=== PATIENT | female | born 1955 | race Caucasian/White ===

== ENCOUNTER 2017-05-12 11:51 | Emergency (ER) | payer MEDICARE, MEDICAID ==
[2017-05-12 12:15] VITALS: BP 125/66
[2017-05-12] MEDS ORDERED: Ketorolac INJ* 60 MG/2 ML VIAL IM ONE (12:57)
[2017-05-12] MEDS ORDERED: Ketorolac INJ* 60 MG/2 ML VIAL ONE (13:05)
--- NOTE | 2017-05-12 13:39 | RAD ---
HISTORY: Weakness, sciatica, low back pain COMPARISONS: None relevant TECHNIQUE: Multiple contiguous axial CT scans were obtained of the lumbar spine without intravenous contrast, with coronal and sagittal multiplanar reformations. FINDINGS: SPINAL CANAL: Evaluation of the central canal is limited on CT technique; however, there is no obvious canalicular mass or epidural hemorrhage. ALIGNMENT: The alignment is normal. VERTEBRAL BODIES: The vertebral bodies are preserved in height. The bones are normal in attenuation. JOINTS: There is facet osteoarthritic change along the lower lumbar spine MUSCULATURE: Unremarkable INTERVERTEBRAL DISCS: There is diffuse loss of intervertebral disc height throughout the spine. AXIAL IMAGES: T12-L1: There is no osseous neural foraminal narrowing or central canal stenosis. L1-L2: There is no osseous neural foraminal narrowing or central canal stenosis. L2-L3: There is no osseous neural foraminal narrowing or central canal stenosis. L3-L4: There is mild disc bulge. There is bilateral facet hypertrophy. There is mild bilateral neuroforaminal narrowing. There is mild narrowing of the central canal. L4-L5: There is bilateral facet hypertrophy. There is mild bilateral neuroforaminal narrowing. There is no surrounding central canal stenosis. L5-S1: There is large left marginal osteophyte extending to the left lateral recess. There is moderate left neural foraminal area. There is no significant central canal stenosis. SOFT TISSUES: There is atherosclerosis of the abdominal aorta OTHER: None IMPRESSION: 1. DEGENERATIVE DISC DISEASE AND OSTEOARTHRITIS, MOST PRONOUNCED AT L3-L4, L4-L5, AND L5-S1. 2. THERE IS MULTILEVEL NEURAL FORAMINAL NARROWING DESCRIBED ABOVE. THERE IS MILD NARROWING OF THE CENTRAL CANAL AT L3-L4
--- NOTE | 2017-05-12 13:42 | ED ---
Back Pain - HPI Summary HPI Summary: Patient presents to the ED with bilateral lower back pain with radiation into the bilateral legs with weakness. Denies numbness or tingling. Denies B/B dysfunction. Previous injury at 13 yo after falling off a horse and states has had problems since that time. However this has always been intermittent. She has taken muscle relaxers without relief. She denies trauma and states the pain came upon gradually, is constant and worse with positioning and better with nothing. Pain is 5/10 at rest and 9/10 with movement. She has been feeling weak and states she must push on her legs with her hands to stand since she does not have the strength. Otherwise healthy. Last CT scan "many years ago." Thorough physical exam was performed, focusing on thoracic and lumbar special tests and ROM. Due to patient pain around injury, physical exam was limited. Limited ROM. Flip Test positive. Straight leg raise positive. Kernig test positive. Negative Babinksi. Hip flexion and extension, knee extension, dorsiflexion, great toe extension and plantar flexion intact. Rotating at hips limited d/t pain. Nerve roots L4-S2 reflexes intact. L1-S2 nerve root sensory intact. No saddle anesthesia. Gait normal. - History of Current Complaint Chief Complaint: EDBackInjuryPain Stated Complaint: LOWER BACK PAIN Time Seen by Provider: 05/12/17 12:09 Hx Obtained From: Patient Onset/Duration: Sudden Onset Onset/Duration: Started Weeks Ago Timing: Constant Pain Intensity: 9 Pain Scale Used: 0-10 Numeric Character: Aching, Spasmodic Aggravating Symptom(s): Movement Alleviating Symptom(s): Rest Associated Signs And Symptoms: Positive: Weakness. Negative: Numbness, Tingling , Flank Pain, Bladder Incontinence, Bowel Incontinence, Weight Loss, Pain with Weight Bearing - Allergies/Home Medications Allergies/Adverse Reactions: Allergies Allergy/AdvReac Type Severity Reaction Status Date / Time Penicillins Allergy Severe high fever Verified 05/28/16 12:34 Methylprednisolone Allergy Intermediate joint Verified 05/28/16 12:34 pain, "legs collapsed" Cefazolin Allergy Mild GI Upset Verified 05/28/16 12:34 CI Pigment Blue 63 Allergy Mild feels weird Verified 05/28/16 12:34 [From Cymbalta] Ciprofloxacin [From Cipro] Allergy Mild GI Upset Verified 05/28/16 12:34 Duloxetine [From Cymbalta] Allergy Mild feels weird Verified 05/28/16 12:34 Ibuprofen Allergy Mild GI Upset Verified 05/28/16 12:34 Tramadol Allergy Mild feels weird Verified 05/28/16 12:34 Codeine Allergy Vomiting Verified 05/28/16 12:34 Erythromycin Allergy delusional, Verified 05/28/16 12:34 high fever Quetiapine Allergy Unknown Verified 05/28/16 12:34 Reaction Details klonopin Allergy Altered Uncoded 05/28/16 12:34 Mental Status steroids Allergy Pain Uncoded 05/28/16 12:34 PMH/Surg Hx/FS Hx/Imm Hx Previously Healthy: Yes Endocrine/Hematology History: Denies: Hx Diabetes Cardiovascular History: Reports: Hx Hypercholesterolemia Denies: Hx Angina, Hx Coronary Artery Disease, Hx Hypertension, Hx Myocardial Infarction, Hx Pacemaker/ICD, Hx Valvular Heart Disease Respiratory History: Reports: Hx Asthma, Hx Chronic Obstructive Pulmonary Disease (COPD) History: Denies: Hx Renal Disease Musculoskeletal History: Reports: Hx Arthritis, Hx Osteoporosis Sensory History: Reports: Hx Cataracts, Hx Contacts or Glasses Denies: Hx Hearing Aid Opthamlomology History: Reports: Hx Cataracts, Hx Contacts or Glasses Psychiatric History: Reports: Hx Anxiety, Hx Depression, Hx Bipolar Disorder Denies: Hx Panic Disorder - Cancer History Hx Chemotherapy: No Hx Radiation Therapy: No - Surgical History Surgery Procedure, Year, and Place: tonsillectomy-BONE SPUR LEFT BIG TOE-NOSE SURGERY 09/03/15. left knee. left foot. left hand. cataracts-both eyes - Immunization History Hx Pertussis Vaccination: No Immunizations Up to Date: Unable to Obtain/Confirm Infectious Disease History: No Infectious Disease History: Denies: History Other Infectious Disease, Traveled Outside the [place] in Last 30 Days - Family History Known Family History: Positive: Hypertension - Social History Occupation: Employed Full-time Lives: With Family Alcohol Use: Occasionally Alcohol Amount: Monthly Hx Substance Use: No Substance Use Type: Reports: None Hx Tobacco Use: Yes Smoking Status (MU): Heavy Every Day Tobacco Smoker Type: Cigarettes Amount Used/How Often: 1 ppd Have You Smoked in the Last Year: Yes Review of Systems Constitutional: Negative Negative: Fever, Chills, Fatigue Cardiovascular: Negative Negative: Chest Pain Respiratory: Negative Negative: Shortness Of Breath, Cough Negative: Abdominal Pain, Vomiting, Diarrhea Positive: no symptoms reported, see HPI. Negative: incontinence Positive: Arthralgia Positive: Weakness Psychological: Normal All Other Systems Reviewed And Are Negative: Yes Physical Exam Triage Information Reviewed: Yes Vital Signs On Initial Exam: Initial Vitals Temp Pulse Resp BP Pulse Ox 97.6 F 90 20 125/66 96 05/12/17 11:56 05/12/17 11:56 05/12/17 11:56 05/12/17 11:56 05/12/17 11:56 Vital Signs Reviewed: Yes Appearance: Positive: Well-Appearing, Well-Nourished Skin: Positive: Warm, Skin Color Reflects Adequate Perfusion Head/Face: Positive: Normal Head/Face Inspection Eyes: Positive: EOMI, ETHAN, Conjunctiva Clear Neck: Positive: Supple, No Lymphadenopathy Respiratory/Lung Sounds: Positive: Clear to Auscultation, Breath Sounds Present Cardiovascular: Positive: Normal, RRR, Pulses are Symmetrical in both Upper and Lower Extremities Musculoskeletal: Positive: Normal, Strength/ROM Intact Neurological: Positive: Sensory/Motor Intact, Alert, Oriented to Person Place, Time, CN Intact II-III, Speech Normal. Negative: Heel to Toe, Finger to Nose, Ataxic Gait Psychiatric: Positive: Normal, Affect/Mood Appropriate - [place] Coma Scale Coma Scale Total: 15 Diagnostics - Vital Signs Vital Signs Temp Pulse Resp BP Pulse Ox 05/12/17 11:56 97.6 F 90 20 125/ 96 - Laboratory Lab Statement: Any lab studies that have been ordered have been reviewed, and results considered in the medical decision making process. Back Pain Course/Dx - Course Course Of Treatment: Patient presents with low back pain radiating to the bilateral legs. Denies numbness/tingling. Weakness in both legs per patient. This was not found on physical exam. Patient sent to imaging. CT scan: IMPRESSION: 1. DEGENERATIVE DISC DISEASE AND OSTEOARTHRITIS, MOST PRONOUNCED AT L3-L4, L4-L5, AND. L5-S1. 2. THERE IS MULTILEVEL NEURAL FORAMINAL NARROWING DESCRIBED ABOVE. THERE IS MILD. NARROWING OF THE CENTRAL CANAL AT L3-L4. Encouraged Ibuprofen 600mg three times daily with meals for pain. She is given Tramadol for pain not well controlled with Ibuprofen. During her course of treatment: Toradol 60 IM given. Return precautions given. Educated patient regarding back injuries and healing time and the need for further imaging if discomfort is present for > 6 weeks. Patient OK with discharge and will follow up as directed. - Diagnoses Differential Diagnosis/HQI/PQRI: Positive: Herniated Disc, Strain, Sprain Provider Diagnoses: Back pain Discharge - Discharge Plan Condition: Stable Disposition: HOME Prescriptions: traMADol TAB* [Ultram*] 25 mg PO Q6HR PRN #12 tab MDD 4 PRN Reason: Pain Patient Education Materials: Piriformis Syndrome (ED), Sciatica (ED) Referrals: Ezequiel Aggarwal MD [Primary Care Provider] - Nilton Cruz MD [Medical Doctor] - Additional Instructions: You were given Toradol while in the emergency room. As discussed, the CT scan did not show any acute abnormalities or new findings suggestive of a fracture or emergent condition You are prescribed Tramadol only for pain not well controlled with your aleve. Return to ED if symptoms worsen or fail to improve, notice worsening swelling, warmth or redness around the joint, develop fever, or pain is uncontrolled with OTC medications. Moist heat to the area for comfort. Warm showers or baths may improve symptoms. It is important to remain mobile as tolerated to prevent stiffening of the joints and delay healing. Follow up with your PCP. If symptoms remain for > 6 weeks, please seek special medical attention from an orthopedic physician. Follow up with Dr. Cruz if you develop worsening symptoms or fail to improve
== END 2017-05-12 14:36 | disposition home or self-care (01) ==
LOC: ED 11:51
DX: M54.5 Low back pain (principal); R53.1 Weakness; F17.210 Nicotine dependence, cigarettes, uncomplicated; M51.36 Other intervertebral disc degeneration, lumbar region
CPT/HCPCS: 72131; 96372; 96374; 96375; 99282; J1885

== ENCOUNTER → 2019-03-08 10:05 | Day surgery (SDC) | payer MEDICARE, MEDICAID ==
[~2019-03-08 10:05] MED LIST: Buffered Lidocaine 1% SYRIN* 1 ML/SYRINGE INTRADERM ONE; Bupivacaine 0.25% SDV PF* 10 ML VIAL INJ ONE; Dexamethasone IV* 4 MG/ML 1 ML (4 MG) ONE; Lactated Ringers 1000 ML Bag* 1,000 ML IV SCH; Lidocaine 1% INJ* 10 MG/ML 30 ML SDV ONE; Lidocaine 2% PF * 5 ML VIAL ONE; Naloxone* 0.4 MG/ML 1 ML VIAL IV PRN; Propofol* 10 MG/ML 20 ML BTL ONE; fentaNYL* 50 MCG/ML 2 ML VIAL (100 MCG VIAL) ONE
[2019-03-08 13:19] VITALS: BP 118/67
--- NOTE | 2019-03-08 21:29 | OP ---
DATE OF OPERATION: 03/08/19 - [facility] DATE OF : 53 SURGEON: Joe Gil DPM. ANESTHESIA: MAC with local. PRE-OP DIAGNOSIS: Osteophyte of the right foot. POST-OP DIAGNOSIS: Osteophyte of the right foot. OPERATIVE PROCEDURE: Removal of osteophyte of right hallux. ESTIMATED BLOOD LOSS: Less than 10 cc. IV FLUIDS: LR 1000 cc. DRAINS: None. SPECIMENS: Bone from the right hallux. DESCRIPTION OF PROCEDURE: The patient was taken to the operating room and was placed in the supine position. Time-out was called, and OR team agreed. The right foot was then blocked with 4 cc of 1% lidocaine plain in a ring block fashion at the base of the toe. The foot was then prepped and draped in sterile manner. The right foot was exsanguinated with an Esmarch bandage and the cuff was then inflated to 250 mmHg. Attention was then paid to the right big toe at the distal tip. Underneath the toenail, there was a palpable painful bony exostosis confirmed via x-rays. I went ahead and made a fish-mouth incision with a #15 blade at the distal part of the right hallux. This was followed by sharp and blunt dissection down from the epidermis, dermis, subcutaneous tissue and down to the periosteum. I went ahead and incised the periosteum to free up the distal phalanx of the toe. I went ahead and identified the exostosis and used a bone rongeur to remove it. The remainder of the bone was then rasped smooth and this completed the procedure. The wound was irrigated, and when it was deemed that the bone was adequately removed, I then went ahead and closed it in a layered anatomical fashion. The deeper layers were closed with 3-0 Polysorb absorbable sutures and the skin was closed with 4-0 nylon. The cuff was then deflated. The foot was injected with 5 cc of 0.25% Marcaine plain at the level of the base of the toe. The foot was then placed in a dry sterile dressing. She was taken to Recovery in stable condition and was later discharged in stable condition as well. [id number]/[facility] #: [id number] [facility]ITALTammie
== END | disposition home or self-care (01) ==
LOC: OR 10:05
PROVIDERS: ATTEND Podiatrist
DX: M25.774 Osteophyte, right foot (principal); J44.9 Chronic obstructive pulmonary disease, unspecified; Z72.0 Tobacco use; F41.8 Other specified anxiety disorders; E78.5 Hyperlipidemia, unspecified; R42 Dizziness and giddiness; M81.0 Age-related osteoporosis without current pathological fracture; E78.00 Pure hypercholesterolemia, unspecified
CPT/HCPCS: 88304; J1100; J2704; J3010; J3490